=== PATIENT | female | born 2000 | race Two or more races ===

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

== ENCOUNTER 2022-03-04 09:06 | Emergency (ER) | payer MEDICAID, OTHER ==
[~2022-03-04] VITALS: Ht 160 cm; Wt 61.3 kg
[2022-03-04] MEDS ORDERED: IOHEXOL 300 MG/ML 100ML BOTTLE IJ ONE (09:26)
[2022-03-04] MEDS ORDERED: ONDANSETRON ODT 4 MG TAB PO ONE (10:30)
[2022-03-04 13:07] VITALS: BP 131/81
== END 2022-03-04 13:08 | disposition home or self-care (01) ==
LOC: ER 09:06
DX: S60.211A Contusion of right wrist, initial encounter (principal); M79.18 Myalgia, other site; M54.2 Cervicalgia; V43.52XA Car driver injured in collision with other type car in traffic accident, initial encounter; Y93.89 Activity, other specified; Y92.89 Other specified places as the place of occurrence of the external cause; Y99.8 Other external cause status
CPT/HCPCS: 70450; 71260; 72125; 73110; 74177; 99285; Q0162; Q9967